=== PATIENT | female | born 1970 | race Caucasian/White ===

== ENCOUNTER 2020-11-06 10:56 | Outpatient (CLI) | payer OTHER, SELFPAY | END 2020-11-06 10:57 | disposition home or self-care (01) | LOC: ANHAUDIO 10:59 | PROVIDERS: PCP Internal Medicine | DX: H90.6 Mixed conductive and sensorineural hearing loss, bilateral (principal) | CPT/HCPCS: 92557; 92567 ==

== ENCOUNTER 2021-04-29 10:37 | Outpatient (CLI) | payer OTHER, SELFPAY ==
[2021-04-29 10:57] LABS: Basophils Absolute Auto 0.1 K/mm3 (0.0-0.1); Basophils Percent Auto 1.2 % (0.2-1.2); Eosinophils Absolute Auto 0.4 K/mm3 (0-0.3); Eosinophils Percent Auto 4.1 % (0-4.4); Hematocrit 41.1 % (37.0-47.0); Hemoglobin 12.8 g/dL (12.0-15.0); Immature Granulocyte Absolute 0.03 K/mm3 (0.00-0.031); Immature Granulocyte Percent A 0.3 % (0-0.5); Lymphocytes Absolute Auto 2.45 K/mm3 (0.9-3.2); Lymphocytes Percent Auto 24.2 % (18.3-44.2); Mean Corpuscular HGB Conc 31.1 g/dl (32-36); Mean Corpuscular Hemoglobin 28.5 pg (26-34); Mean Corpuscular Volume 91.5 fl (80-100); Mean Platelet Volume 9.1 fl (7.4-10.4); Monocytes Percent Auto 10.3 % (2.6-8.5); Neutrophils Absolute Auto 6.1 K/mm3 (1.3-6.7); Neutrophils Percent Auto 59.9 % (45.5-73.1); Platelet Count Result 400 k/mm3 (150-375); Red Blood Count 4.49 M/mm3 (4.2-5.4); Red Cell Distribution Width 14.1 % (11.5-14.5); White Blood Count 10.1 K/mm3 (4.5-10.0)
== END 2021-04-29 10:38 | disposition home or self-care (01) ==
LOC: ANHSURGERY 10:42
PROVIDERS: PCP Internal Medicine; Visit Provider Obstetrics & Gynecology
DX: Z01.818 Encounter for other preprocedural examination (principal); N85.2 Hypertrophy of uterus
CPT/HCPCS: 36415; 85025; 86850; 86900; 86901

== ENCOUNTER 2021-05-01 00:34 | Day surgery (SDC) | payer OTHER, SELFPAY ==
[2021-04-28 12:10] VITALS: BMI 26.6
--- NOTE | 2021-04-28 12:31 | PC.NURSE ---
Report to the Outpatient Waiting Room, entrance under the green pavilion located off [facility], at time 6:00 on date 05/01/21. OR Time: 7:30. - You will be asked a series of questions to screen for COVID 19 for your protection. - A mask is required within the hospital. - No visitors are allowed at this time. Preoperative COVID Testing Requirements: No COVID Test needed if: (proof is required; if not received patient will have Rapid Test prior to entry) - Patient has received COVID Vaccine at least 14 days prior to procedure date or - Patient has positive COVID test result within last 90 days of surgery date. COVID Test needed if above criteria is not met Patients may have clear liquids (water, carbonated beverages, clear teas, apple juice) until 3 hours prior to surgery (4:30) with a maximum of 20 ounces. - No food from midnight until time of surgery Take the following medications with a SIP of water the morning of surgery: NONE Medications to discontinue per physician: VITAMINS/SUPPLEMENTS Date to take last dose: 04/28/21 Please no make-up, nail vietnamese, hairspray, perfume, deodorant, or body powder the day of surgery. No jewelry (including any body piercings) or valuables the day of surgery, leave them at home. Please take a shower or bath the night before, or the morning of, surgery with an antibacterial soap. Wear comfortable, loose fitting clothing. - Jewelry must be removed prior to entering the operating room. Rings and piercings that are not removed may be cut off. - The hospital will not accept responsibility for valuables. - Please leave all valuables, including medications, at home the day of surgery. If you are going home after surgery, a licensed hearse driver must drive you home. - NO public transportation without another adult. - We recommend that an adult stay with you for 24 hours following discharge. - We also recommend that you do not drive, make important decision, drink alcoholic beverages, or take any drugs that were not prescribed by your health care provider for at least 24 hours after your discharge time. Follow any additional instructions given to you from your surgeon. Telephone instructions given to ORLY OCONNOR and asked if any additional questions and then verbalized understanding. Patient advised to call surgeon office or pre surgery nurse liaison [phone] if any additional questions.
--- NOTE | 2021-04-29 07:48 | PM.IMHP ---
H&P: HPI History of Present Illness Date/Time: 04/29/21 07:48 50-year-old female admitted for robotic total vaginal hysterectomy and bilateral salpingectomies. She has an enlarged uterus with uterine fibroids on imaging. She also has irregular bleeding pelvic pain. Risks and benefits of this procedure reviewed including not exclusive of , aspiration pneumonia, bleeding, transfusion, perforation injury to bowel, bladder, ureters, or other internal organs with need for open laparotomy. She received the ACOG handout entitled hysterectomy as well as de Ed handout. She had all questions answered and asked to proceed Chief Complaint: Enlarged uterus and pelvic pain Review of Systems Review of Systems: All systems reviewed & are unremarkable except as noted in HPI and below [facility] Social History Social History Smoking status: Never smoker Alcohol intake: never Substance use: never Substance use type: does not use Spiritual care concerns: No Meds Home Medications and Allergies Home Medications Medication Instructions Recorded Confirmed Type mirabegron [Myrbetriq] 25 mg PO DAILY 04/28/21 04/28/21 History multivitamin 1 tablet PO DAILY 04/28/21 04/28/21 History omeprazole 20 mg PO HS 04/28/21 04/28/21 History Allergies Allergy/AdvReac Type Severity Reaction Status Date / Time No Known Allergies Allergy Unknown Unverified 04/28/21 12:05 Exam Const: General: no acute distress Eyes: General: appearance normal, both eyes and all related structures Neck: Neck: supple and no JVD Thyroid: thyroid normal Resp: Effort & Inspection: normal respiratory effort Auscultation: clear to auscultation bilaterally Cardio: Rate: regular rate Rhythm: regular rhythm GI: Inspection: non-distended GI Palp: Yes Soft to palpation, No Tenderness to palpation present (GI) and No Guarding due to palpation present (GI) Auscultation: normal bowel sounds : External Female Exam: normal external appearance Speculum Exam - Vagina: normal appearance of the vagina Speculum Exam - Cervix: normal appearance of the cervix Bimanual exam- vagina & uterus: enlarged and Uterine tenderness Bimanual Exam- Adnexa, other: normal adnexae Skin: General skin exam: no rashes or lesions noted Extrem: General: normal to inspection and no edema Psych: Mental Status: mental status grossly normal Affect: normal affect Assessment and Plan Additional Plan Impression: Enlarged uterus and pelvic pain Plan: Robotic total vaginal hysterectomy with bilateral salpingectomy
[2021-05-01] VITALS (10 sets, daily range): BP systolic 96–136; BP diastolic 52–82; PULSE 47–93; RESP 11–18; TEMP 36.3–36.8; O2SAT 97–100; BMI 27.8
[2021-05-01] MEDS: ACETAMINOPHEN 500 MG TABLET 1000 MG PO (06:39)
[2021-05-01] MEDS: KETOROLAC 15 MG/ML VIAL (*BKC) IV PUSH (06:45)
--- NOTE | 2021-05-01 07:11 | WPDHPUPDATE1 ---
History and Physical Update Update Date/Time: 05/01/21 07:11 History and Physical has been reviewed, including an updated exam of the patient. There are NO changes in the patient's condition. Risks, benefits, and alternatives have been discussed and questions answered. Patient agrees to proceed with procedure.
--- NOTE | 2021-05-01 07:17 | SUR.PREOP ---
0614 UPON ARRIVAL TO PRE-OP PT STATED THAT SHE WOKE UP WITH A LT EAR ACH
[2021-05-01] MEDS: LACTATED RINGERS 1,000 ML 30 ML IV CONT (07:25)
--- NOTE | 2021-05-01 07:25 | P.PNAN_ITS ---
Anes - Initial Pre Proc Eval Procedure: Operation Date: 05/01/21 07:30 Proposed Procedures p Robotic Assisted Total Vaginal Hysterectomy with Bilateral Salpingectomy - Deric Ojeda MD Date/Time: 05/01/21 07:25 Surgeon: Deric Ojeda MD Pre Op Diagnosis: enlarged uterus, fibroids, irre bleeding, pain Patient Data Age: 50 Gender: F Height: 1.7 m Weight: 80.8 kg Last Vital Signs Temp 36.8 C 05/01/21 06:56 Pulse 82 05/01/21 06:56 Resp 18 05/01/21 06:56 BP 136/82 05/01/21 06:56 Pulse Ox 100 05/01/21 06:56 Allergies Allergy/AdvReac Type Severity Reaction Status Date / Time No Known Allergies Allergy Unknown Unverified 05/01/21 06:26 Home Medications Medication Instructions Recorded Confirmed Type mirabegron [Myrbetriq] 25 mg PO DAILY 04/28/21 05/01/21 History multivitamin 1 tablet PO DAILY 04/28/21 05/01/21 History omeprazole 20 mg PO HS 04/28/21 05/01/21 History hydrocodone-acetaminophen 1 tablet PO Q4H PRN #30 tablet 05/01/21 Rx Patient hx anesthesia problems: none Family hx anesthesia problems: none Results Review: All pre-operative results and documents have been reviewed as part of the pre-operative evaluation. [facility] Past Medical History Medical History GERD (gastroesophageal reflux disease) Social History Social History Smoking status: Never smoker Alcohol intake: never Substance use: never Substance use type: does not use Living arrangements: with family Spiritual care concerns: No Anes - Eval Final PreProcedure Day of Procedure 05/01/21 07:25 Patient weight: overweight Heart: regular rate and rhythm Lungs: clear to auscultation Airway: Mallampati scale class II Neurological: alert and oriented Last oral intake: >/= 8 hours ASA classification: II Emergent: no Anesthetic plan: proceed Anesthesia type and monitoring: general ETT and standard monitoring Results Review: All pre-operative results and documents have been reviewed as part of the pre-operative evaluation. Informed Consent: The patient's anesthetic plan and its attendant risks and benefits were discussed with the patient/family/POA. Questions were solicited and answers provided to the satisfaction of the patient/family/POA.
--- NOTE | 2021-05-01 07:27 | SUR.PREOP ---
0768 DR. RODRIGUEZ INFORM OF PT C/O LT EAR ACH - OK TO PROCEED WITH SURGERY PLANNED.
[2021-05-01] MEDS: ceFAZolin 2 GM/D5W 50 ML 2 GM/50 ML BAG IVPB (07:28)
--- NOTE | 2021-05-01 07:36 | SUR.PREOP ---
NEG PREG TEST
--- NOTE | 2021-05-01 08:48 | W.PM.PROC2 ---
Procedure Note - Detailed Date of Procedure 05/01/21 Pre-op Diagnosis enlarged uterus, fibroids, irre bleeding, pain Post-op Diagnosis same Procedure Performed Robotic total vaginal hysterectomy and bilateral salpingectomies Surgeon Deric Ojeda MD Anesthesia general Indications This is a 50-year-old female with an enlarged fibroid uterus and suspected adenomyosis with pelvic pain and discomfort. Findings Markedly enlarged uterus. Tubes status post tubal ligation. Normal-appearing ovaries Description of Procedure The patient was prepped draped in the normal sterile fashion placed in the dorsal lithotomy position. Under excellent general trach anesthesia weighted speculum placed in posterior fornix vagina. Anterior lip of the cervix grasped with a single-tooth tenaculum and the uterus sounded to 10cm. Serial dilatation with fragmented dilators performed followed by passes the 8. DELVIN and the 3. Cold cup. Next the 16 Persian catheter was placed in the bladder to drain the bladder of clear urine. The weighted speculum was removed. The gloves were changed A supraumbilical incision made in the Veress needle passed in the abdomen. Abdomen filled with CO2 gas [id number]. These were using a 12 trocar a 0 Vicryl was placed at each edge of the fascia to close the fascial later. The 12 was placed through the abdomen the downside visualized no injury seen gas reattached and patient placed in Trendelenburg. Left and right lateral quadrant incisions made the 8mm trocars advanced under direct visualization right upper quadrant incision made in the right upper quadrant incision past with a 8. Port. Care was taken to avoid abdominal injury. The robot was docked. Attention was turned to the console. The left round ligament was grasped, burned, cut. Anteriorly the bladder was markedly adherent anteriorly from the previous section scar. This was taken down layer by layer and pushed caudally to the opposite round ligament was clamped, burned, cut. The tubes were status post tubal ligation in the left portion of distal portion of fallopian tube was removed and passed off and this was repeated on the contralateral side removing the distal portion of the right fallopian tube. The left utero-ovarian ligament was then skeletonized clamped burned and cut and brought to level of previously cut round ligament. In like fashion conserving the right ovary the the utero-ovarian ligaments clamped, burned, cut and brought to the level of previously cut round ligament. The cardinal broad ligaments on the left were then serially skeletonized these were clamped, burned, cut and brought down the lateral edge of the uterus until the large uterine tortuous vessels could be seen. These were individually clamped, burned, cut. In like fashion the cardinal broad ligaments on the right were serially skeletonized hugging the cervix and uterus clamped, burned, cut and brought down to the level of the uterine vessels. These were also large and tortuous and were individually clamped, burned, cut. Excellent blanching of the uterus was seen. A colpotomy incision was made cervix uterus and portion the tubes were removed through the vagina. Blood loss was estimated 25cc. The vagina was then closed with continuous running 0V lock from lateral edge to lateral edge. The raw surface area was then sprinkled with Stigler term. Excellent hemostasis was noted the robot was undocked. The gas removed from the abdomen the supraumbilical incision was closed at that without 0 Vicryl and all the incisions closed with 4 O Monocryl and glue. Blood loss was estimated 25cc for the entire procedure. All sponge, needle, instrument counts were correct. There were no immediate complications noted Estimated Blood Loss 25 Drains No Packing No Pathology yes Complications No immediate complications Condition stable Disposition PACU
[2021-05-01] MEDS: fentaNYL CITRATE INJ (*CRX) 100 MCG/2 ML VIAL 25 MCG IV PUSH ×5 (09:09→10:25)
--- NOTE | 2021-05-01 10:42 | PC.NURSE ---
This patient, Verito Covington, was received from PACU on 05/01/21 at 1042. Patient/family oriented to unit policies and routines
[2021-05-01] MEDS: DEXTROSE 5%/LACTATED RINGERS 1,000 ML 125 ML IV CONT (11:15)
[2021-05-01] MEDS: KETOROLAC 30 MG/ML VIAL (*BKC) IV PUSH (11:15)
[2021-05-01] MEDS: HYDROcodone/acetaminophen (*CRX) 5-325 MG TABLET 1 TAB PO (16:09)
[2021-05-01] MEDS: DOCUSATE SODIUM 100 MG CAPSULE PO (16:10)
[2021-05-01] MEDS: HYDROcodone/acetaminophen (*CRX) 10-325 MG TABLET 1 TAB PO (21:25)
[2021-05-01] MEDS: IBUPROFEN 600 MG TABLET PO (21:25)
[2021-05-02 00:15] VITALS: BP 122/75; PULSE 72; RESP 18; TEMP 37.3; O2SAT 100
[2021-05-02] MEDS: HYDROcodone/acetaminophen (*CRX) 10-325 MG TABLET 1 TAB PO (02:21)
[2021-05-02 04:36] VITALS: BP 102/41; PULSE 88; RESP 18; TEMP 36.8; O2SAT 96
[2021-05-02 05:50] LABS: Basophils Absolute Auto 0.1 K/mm3 (0.0-0.1); Basophils Percent Auto 0.4 % (0.2-1.2); Eosinophils Absolute Auto 0.1 K/mm3 (0-0.3); Eosinophils Percent Auto 0.8 % (0-4.4); Hematocrit 33.1 % (37.0-47.0); Hemoglobin 10.6 g/dL (12.0-15.0); Immature Granulocyte Absolute 0.08 K/mm3 (0.00-0.031); Immature Granulocyte Percent A 0.5 % (0-0.5); Lymphocytes Absolute Auto 2.51 K/mm3 (0.9-3.2); Lymphocytes Percent Auto 16.2 % (18.3-44.2); Mean Corpuscular Hemoglobin 28.3 pg (26-34); Mean Corpuscular Volume 88.5 fl (80-100); Mean Platelet Volume 9.8 fl (7.4-10.4); Monocytes Absolute Auto 1.4 K/mm3 (0.1-0.6); Monocytes Percent Auto 9.2 % (2.6-8.5); Neutrophils Absolute Auto 11.3 K/mm3 (1.3-6.7); Neutrophils Percent Auto 72.9 % (45.5-73.1); Platelet Count Result 380 k/mm3 (150-375); Red Blood Count 3.74 M/mm3 (4.2-5.4); Red Cell Distribution Width 13.9 % (11.5-14.5); White Blood Count 15.5 K/mm3 (4.5-10.0)
--- NOTE | 2021-05-02 08:29 | P.DS_ITS ---
DS: Admitting Diagnosis Discharge Date 05/02/21 Admitting Diagnosis Enlarged uterus, pelvic pain, uterine fibroids, bleeding refractory to medical therapy DS: Summary Hospital Course Hospital Course: Patient was admitted for robotic total vaginal hysterectomy and bilateral salpingectomy. The procedure was performed on 05/01/2021 and was unremarkable. Please see the operative report for full details. Her hospital course was unremarkable. She remained afebrile. She was up, walking, ambulating, voiding without difficulty, eating and generally without complaints. Time Spent with Patient Time attestation: Total time spent providing and/or coordinating discharge services: Exam Const: General: no acute distress Eyes: General: appearance normal, both eyes and all related structures Neck: Neck: supple and no JVD Thyroid: thyroid normal Resp: Effort & Inspection: normal respiratory effort Auscultation: clear to auscultation bilaterally Cardio: Rate: regular rate Rhythm: regular rhythm GI: Inspection: non-distended GI Palp: Yes Soft to palpation, No Tenderness to palpation present (GI) and No Guarding due to palpation present (GI) Auscu ltation: normal bowel sounds : General: Yes bladder normal to palpation External Female Exam: normal external appearance Speculum Exam - Vagina: normal vaginal discharge and No vaginal bleeding Speculum Exam - Cervix: nontender Bimanual exam- vagina & uterus: bladder normal to palpation and No Cervical tenderness present OB/external & speculum: No vaginal bleeding Skin: General skin exam: no rashes or lesions noted Extrem: General: normal to inspection and no edema Psych: Mental Status: mental status grossly normal Affect: normal affect DS: Data Data Completed and Pending Pending studies at discharge: Pending at discharge 05/01/21 08:31 Surgical [PTH] Routine Labs on day of discharge: Labs from last 24 hours 05/02/21 04:15 WBC 15.5 H RBC 3.74 L Hgb 10.6 L Hct 33.1 L MCV 88.5 MCH 28.3 MCHC 32.0 RDW 13.9 Plt Count 380 H MPV 9.8 Immature Gran % (Auto) 0.5 Neut % (Auto) 72.9 Lymph % (Auto) 16.2 L [place] % (Auto) 9.2 H Eos % (Auto) 0.8 Baso % (Auto) 0.4 Lymph # (Auto) 2.51 [place] # (Auto) 1.4 H Eos # (Auto) 0.1 Baso # (Auto) 0.1 Abs Immat Gran (auto) 0.08 H Absolute Neuts (auto) 11.3 H Absolute Nucleated RBC 0.0 Nucleated RBC % 0.0 Discharge Plan Discharge Patient Disposition: Home, Self-Care Patient Instructions: Laparoscopic Hysterectomy (DC), Pain Management After Surgery (DC) Stand Alone Forms: General Discharge Instructions Follow-up/Referrals: Deric Ojeda MD [Physician] - Discharge Medications: New hydrocodone-acetaminophen 5-325 mg tablet 1 tablet PO Q4H PRN (Reason: pain) Qty: 30 RF: 0 No Action multivitamin Tablet 1 tablet PO DAILY RF: 0 omeprazole 20 mg Tablet,Delayed Release (Dr/Ec) 20 mg PO HS RF: 0 Myrbetriq 25 mg tablet extended release 24 hr 25 mg PO DAILY RF: 0
--- NOTE | 2021-05-02 08:30 | PC.NURSE ---
PT introductions made and plan of care discussed per post op administrative job titles surgery, pain management, daily care activities and pending discharge to home. PT received such instructions per one to one discussion and demonstrations this shift. PT sole recipient of such instructions and no barriers to learning identified at this time. PT verbalized understanding of such care.
--- NOTE | 2021-05-02 08:31 | PM.GYNPNOP ---
JACQUARD [employer]ED[employer] TIER - A/P Postoperative Procedures: Procedures Operation Date: 05/01/21 07:30 Actual Procedure Side Surgeon p Robotic Assisted Total Vaginal Hysterectomy with Bilateral Salpingectomy Bilateral Deric Ojeda MD Postoperative day: 1 Postoperative status: doing well Postoperative plan: routine post-op care, see orders, advance diet and discharge Time Spent With Patient Time: Total time spent is greater than 50% in coordination of care (as documented) at patient's floor/unit and/or counseling patient: Time with patient: less than 15 minutes [employer]- PN:Subj Post-Op Subjective Date/time seen: 05/02/21 08:31 Subjective: patient has no complaints and patient desires discharge Review of Systems Review of Systems: All systems reviewed & are unremarkable except as noted in HPI and below Exam Const: General: no acute distress Eyes: General: appearance normal, both eyes and all related structures Neck: Neck: supple and no JVD Thyroid: thyroid normal Resp: Effort & Inspection: normal respiratory effort Auscultation: clear to auscultation bilaterally Cardio: Rate: regular rate Rhythm: regular rhythm GI: Inspection: normal to inspection Percussion: Yes normal to percussion Auscultation: normal bowel sounds and other (Clean dry andintact) : External Female Exam: normal external appearance and other (No vaginal bleeding) Speculum Exam - Vagina: normal appearance of the vagina Skin: General skin exam: no rashes or lesions noted Extrem: General: normal to inspection and no edema Psych: Mental Status: mental status grossly normal Affect: normal affect [employer] TIER - PN: Obj Data Vital Signs Vital Signs: Vital Signs - 24 hr 05/01/21 09:05 05/01/21 09:20 05/01/21 09:34 Temperature 97.4 F L Pulse Rate 58 L 48 L 48 L Respiratory Rate 12 18 13 Blood Pressure 126/69 107/64 106/63 Pulse Oximetry 100 97 100 05/01/21 09:50 05/01/21 10:06 05/01/21 10:20 Temperature Pulse Rate 47 L 47 L 51 L Respiratory Rate 11 L 11 L 11 L Blood Pressure 96/66 L 108/63 105/67 Pulse Oximetry 100 99 99 05/01/21 11:43 05/01/21 15:45 05/01/21 19:45 Temperature 98.1 F 98.2 F 98.3 F Pulse Rate 59 L 93 65 Respiratory Rate 16 18 18 Blood Pressure 104/52 L 128/68 127/80 Pulse Oximetry 100 98 100 05/02/21 00:15 05/02/21 04:36 Temperature 99.1 F 98.2 F Pulse Rate 72 88 Respiratory Rate 18 18 Blood Pressure 122/75 102/41 L Pulse Oximetry 100 96 Intake/Output Intake/Output: Intake & Output 04/29/21 04/30/21 05/01/21 05/02/21 23:59 23:59 23:59 23:59 Intake Total 4220 400 Output Total 2550 400 Balance 1670 0 Meds/Results Medications: Active Medications Generic Name Dose Route Start Last Admin Trade Name Freq PRN Reason Stop Dose Admin Hydrocodone Bitart/Acetaminophen 1 tab 05/01/21 10:38 05/01/21 16:09 Hydrocodone/Acetaminophen (*Crx) 5-325 Mg Tablet PO 1 tab Q3H PRN Administration Pain Rated 5 or Less Hydrocodone Bitart/Acetaminophen 1 tab 05/01/21 10:38 05/02/21 02:21 Hydrocodone/Acetaminophen (*Crx) 10-325 Mg Tablet PO 1 tab Q3H PRN Administration Pain Rated 6 or Greater Docusate Sodium 100 mg 05/01/21 10:38 05/01/21 17:58 Docusate Sodium 100 Mg Capsule PO Not Given BID [facility] Enoxaparin Sodium 40 mg 05/01/21 10:38 05/01/21 17:58 Enoxaparin 40 Mg/0.4 Ml Syringe SUB-Q Not Given DAILY [facility] Ibuprofen 600 mg 05/01/21 10:38 05/01/21 21:25 Ibuprofen 600 Mg Tablet PO 600 mg Q6H PRN Administration Cramping Ketorolac Tromethamine 30 mg 05/01/21 10:38 05/01/21 11:15 Ketorolac 30 Mg/Ml Vial (*Bkc) IV PUSH 05/06/21 10:37 30 mg Q6H PRN Administration Pain Rated 4-6 Naloxone HCl 0.1 mg 05/01/21 10:38 Naloxone Hcl 0.4 Mg/Ml Vial IV PUSH Q2M PRN Respiratory rate less than 10 Ondansetron HCl 4 mg 05/01/21 10:38 Ondansetron Inj 4 Mg/2 Ml Vial IV PUSH Q6H PRN Nausea And Vomiting Simethicone 80 mg
[2021-05-02] MEDS: ENOXAPARIN 40 MG/0.4 ML SYRINGE SUB-Q (08:46)
[2021-05-02] MEDS: DOCUSATE SODIUM 100 MG CAPSULE PO (08:47)
[2021-05-02] MEDS: SIMETHICONE 80 MG TAB.CHEW PO (08:47)
[2021-05-02] MEDS: HYDROcodone/acetaminophen (*CRX) 5-325 MG TABLET 1 TAB PO (08:47)
[2021-05-02] MEDS: IBUPROFEN 600 MG TABLET PO (08:48)
[2021-05-02 09:05] VITALS: BP 126/67; PULSE 61; RESP 16; TEMP 36.2; O2SAT 100
--- NOTE | 2021-05-02 10:00 | PC.NURSE ---
PT received discharge instructions and verbalized understanding of such care.
--- NOTE | 2021-05-02 10:28 | PC.NURSE ---
PT discharged to home ambulatory accompanied by spouse and taken to waiting car. Follow up appts confirmed
--- NOTE | 2021-05-02 10:29 | WPDANESPN ---
Anes - Prog Note Post-Op Date/Time: 05/02/21 10:29 Cardiovascular status: normal Respiratory status: normal Airway patency: baseline Post-Op hydration status: normal Vital Signs: Last Vital Signs Temp 36.2 C L 05/02/21 09:05 Pulse 61 05/02/21 09:05 Resp 16 05/02/21 09:05 BP 126/67 05/02/21 09:05 Pulse Ox 100 05/02/21 09:05 Pain Score (VAS): 04/27 I/O: Intake & Output 05/01/21 05/02/21 05/02/21 23:59 07:59 15:59 Intake Total 1100 400 Output Total 1050 400 Balance 50 0 Laboratory Tests 05/02/21 04:15 05/02/21 04:15 WBC 15.5 H RBC 3.74 L Hgb 10.6 L Hct 33.1 L MCV 88.5 MCH 28.3 MCHC 32.0 RDW 13.9 Plt Count 380 H MPV 9.8 Immature Gran % (Auto) 0.5 Neut % (Auto) 72.9 Lymph % (Auto) 16.2 L [place] % (Auto) 9.2 H Eos % (Auto) 0.8 Baso % (Auto) 0.4 Lymph # (Auto) 2.51 [place] # (Auto) 1.4 H Eos # (Auto) 0.1 Baso # (Auto) 0.1 Abs Immat Gran (auto) 0.08 H Absolute Neuts (auto) 11.3 H Absolute Nucleated RBC 0.0 Nucleated RBC % 0.0 Post-procedural complaints: none Patient Feedback: Patient satisfied with anesthetic care.
== END 2021-05-02 10:28 | disposition home or self-care (01) ==
LOC: ANHSURGERY 07:12 → ANHOB2 10:39
PROVIDERS: PCP Internal Medicine; Visit Provider Obstetrics & Gynecology
PROC: (CPT 58552; principal; 2021-05-01 07:30)
DX: D25.1 Intramural leiomyoma of uterus (principal); D25.2 Subserosal leiomyoma of uterus; N93.9 Abnormal uterine and vaginal bleeding, unspecified; N80.0 Endometriosis of uterus; N80.2 Endometriosis of fallopian tube; N73.6 Female pelvic peritoneal adhesions (postinfective); K21.9 Gastro-esophageal reflux disease without esophagitis; R10.2 Pelvic and perineal pain
CPT/HCPCS: 58552; S2900; 36415; 85025; 86850; 86900; 86901; 88307; 99199; A9270; J0690; J1100; J1650; J1885; J2250; J2270; J2405; J2704; J2710; J2765; J3010; J7030; J7120; J7121

== ENCOUNTER 2022-02-24 01:26 | Day surgery (SDC) | payer OTHER, SELFPAY ==
[2022-02-16 12:55] VITALS: BMI 30.7
--- NOTE | 2022-02-23 15:08 | PM.HPGS ---
History of Present Illness History of Present Illness Consent: Risks, benefits, and alternatives have been discussed and questions answered. Patient agrees to proceed with procedure. Chief complaint: dysphagia, neoplasm screening Narrative: Verito Covington is a 51 year old female who is referred because of dysphagia and also for colon cancer screening. She was found to have eosinophilic esophagitis about 5 years ago. A follow-up EGD several months later showed a very low eosinophil count showing that she had responded. Her therapy at that time was only omeprazole. She continues to take omeprazole, 20 mg daily. She is however having more dysphagia now. 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 EGD a year later showed only scarce eosinophils. Review of Systems Review of Systems: All systems reviewed & are unremarkable except as noted in HPI and below PMFSH Past Medical History Medical History Dysphagia Eosinophilic esophagitis GERD (gastroesophageal reflux disease) GERD (gastroesophageal reflux disease) Liver hemangioma Obesity (BMI 30.0-34.9) Patella-femoral syndrome Pulmonary nodule Pulmonary nodules Screening for colon cancer Surgical History Surgical History History of partial hysterectomy Family History Family History Mother Depression Anxiety Father Parkinsons Social History Social History Smoking status: Never smoker Alcohol intake: never Substance use: never Substance use type: does not use Living arrangements: with family Gender identity (if verbalized by the patient): Female Sexual Orientation (if Verbalized by the Patient): Straight or Heterosexual Spiritual care concerns: No Meds Home Medications and Allergies Home Medications Medication Instructions Recorded Confirmed Type mirabegron 25 mg tablet,extended 25 mg PO DAILY 04/28/21 02/16/22 History release 24 hr (Myrbetriq) multivitamin 1 tablet PO DAILY 04/28/21 02/16/22 History fluticasone propionate 50 2 spray intranasal DAILY 01/07/22 02/16/22 History mcg/actuation nasal spray,suspension omeprazole 40 mg capsule,delayed 40 mg PO DAILY #30 caps 02/09/22 02/16/22 Rx release Allergies Allergy/AdvReac Type Severity Reaction Status Date / Time No Known Allergies Allergy Unknown Verified 02/24/22 08:14 Exam Const: General: alert Orientation/consciousness: patient oriented x3 Resp: Auscultation: clear to auscultation bilaterally Cardio: Rhythm: regular rhythm GI: GI Palp: Yes Soft to palpation and No Tenderness to palpation present (GI) Neuro: General: patient oriented x3 Assessment and Plan Assessment and plan (1) Dysphagia: Code(s): R13.10 - Dysphagia, unspecified Status: Acute Assessment and Plan: EGD with possible biopsy or dilatation or cautery. (2) Screening for colon cancer: Code(s): Z12.11 - Encounter for screening for malignant neoplasm of colon Status: Acute Assessment and Plan: Colonoscopy with possible biopsy or polypectomy or cautery or injection of substances.
[2022-02-24 08:15] VITALS: BP 126/83; PULSE 84; RESP 18; TEMP 36.2; O2SAT 98
[2022-02-24] MEDS: LACTATED RINGERS 1,000 ML 150 ML IV CONT (08:25)
--- NOTE | 2022-02-24 09:02 | WPDANESEPPF ---
Anes - Initial Pre Proc Eval Procedure: Operation Date: 02/24/22 09:30 Proposed Procedures p Esophagogastroduodenoscopy & Screening Colonoscopy - Niles Clay MD Date/Time: 02/24/22 09:02 Surgeon: Niles Clay MD Pre Op Diagnosis: dysphagia, neoplasm screening Patient Data Age: 51 Gender: F Height: 1.7 m Weight: 87.4 kg Last Vital Signs Temp 97.2 F L 02/24/22 08:15 Pulse 84 02/24/22 08:15 Resp 18 02/24/22 08:15 BP 126/83 02/24/22 08:15 Pulse Ox 98 02/24/22 08:15 O2 Del Method Room Air 02/24/22 08:15 Allergies Allergy/AdvReac Type Severity Reaction Status Date / Time No Known Allergies Allergy Unknown Verified 02/24/22 08:14 Home Medications Medication Instructions Recorded Confirmed Type mirabegron 25 mg tablet,extended 25 mg PO DAILY 04/28/21 02/16/22 History release 24 hr (Myrbetriq) multivitamin 1 tablet PO DAILY 04/28/21 02/16/22 History fluticasone propionate 50 2 spray intranasal DAILY 01/07/22 02/16/22 History mcg/actuation nasal spray,suspension omeprazole 40 mg capsule,delayed 40 mg PO DAILY #30 caps 02/09/22 02/16/22 Rx release Patient hx anesthesia problems: none Family hx anesthesia problems: none Results Review: All pre-operative results and documents have been reviewed as part of the pre-operative evaluation. [facility] Past Medical History Medical History (Updated 02/09/22 @ 14:42 by Peggy Parikh APRN) Dysphagia Eosinophilic esophagitis GERD (gastroesophageal reflux disease) GERD (gastroesophageal reflux disease) Liver hemangioma Obesity (BMI 30.0-34.9) Patella-femoral syndrome Pulmonary nodule Pulmonary nodules Screening for colon cancer Surgical History Surgical History History of partial hysterectomy Family History Family History Mother Depression Anxiety Father Parkinsons Social History Social History Smoking status: Never smoker Alcohol intake: never Substance use: never Substance use type: does not use Living arrangements: with family Gender identity (if verbalized by the patient): Female Sexual Orientation (if Verbalized by the Patient): Straight or Heterosexual Spiritual care concerns: No Anes - Eval Final PreProcedure Day of Procedure 02/24/22 09:02 Patient weight: normal Heart: regular rate and rhythm Lungs: clear to auscultation Airway: Mallampati scale class II Neurological: alert and oriented Last oral intake: >/= 8 hours ASA classification: II Emergent: no Anesthetic plan: proceed Anesthesia type and monitoring: general GIVS and standard monitoring Results Review: All pre-operative results and documents have been reviewed as part of the pre-operative evaluation. Informed Consent: The patient's anesthetic plan and its attendant risks and benefits were discussed with the patient/family/POA. Questions were solicited and answers provided to the satisfaction of the patient/family/POA.
--- NOTE | 2022-02-24 09:33 | SUR.OPER ---
EGD began at . Colonoscopy began at 929.
[2022-02-24 09:47] VITALS: BP 122/70; PULSE 90; RESP 18; O2SAT 98
[2022-02-24 09:57] VITALS: BP 131/92; PULSE 82; RESP 18; O2SAT 98
[2022-02-24 10:07] VITALS: BP 136/75; PULSE 80; RESP 20; O2SAT 100
== END 2022-02-24 10:16 | disposition home or self-care (01) ==
PROVIDERS: PCP Family Medicine; Visit Provider Internal Medicine Gastroenterology
PROC: 0DJ08ZZ Inspection of Upper Intestinal Tract, Via Natural or Artificial Opening Endoscopic (ICD-10-PCS; CPT 43235; principal; 2022-02-24 09:30)
DX: Z12.11 Encounter for screening for malignant neoplasm of colon (principal); K57.30 Diverticulosis of large intestine without perforation or abscess without bleeding; K20.0 Eosinophilic esophagitis; R13.10 Dysphagia, unspecified
CPT/HCPCS: 45378; 43249; 88305; C1726; J2001; J2704; J7120

== ENCOUNTER 2022-03-03 09:34 | Outpatient (CLI) | payer OTHER, SELFPAY ==
--- NOTE | ~2022-03-03 | CT_ITS ---
EXAMINATION: CT chest abdomen w con DATE: 03/03/2022 10:23 INDICATION: Lung nodules and liver hemangiomas TECHNIQUE: Computed tomography (CT) of the chest and abdomen was performed with 100 mL Omnipaque-350 intravenous contrast. Automated exposure control and iterative reconstruction technique were employed . The dose-length product was 572.84 mGy-cm. COMPARISON: 05/10/2019 and 05/02/2019 FINDINGS: CHEST CT: Minimal discoid atelectasis at the lingula. Unchanged 1.3 cm centrally calcified granuloma in the lef t lower lobe. Also unchanged are noncalcified 2 mm and 4 mm right upper lobe nodules on series 4, naresh ges 23 and 44 respectively. The previously seen nodular groundglass opacities in the left lower lobe have resolved and were likely infectious/inflammatory in etiology. No other suspicious pulmonary nodu les, pulmonary edema, pneumonia or pleural effusion. Heart size is normal. No pericardial effusion. E ctatic ascending thoracic aorta measuring up to 4.0 cm. Normal caliber aortic arch and descending tho racic aorta. No dissection. No pathologically enlarged thoracic lymphadenopathy. Small sliding-type h iatal hernia. ABDOMEN CT: Interval increase in the 2 largest of 3 cavernous hemangiomas, each with characteristic peripheral di scontiguous puddling of contrast. The largest 5.8 x 3.5 cm, currently 6.5 x 4.2 cm cavernous hemangio ma in the caudal right hepatic lobe, the next largest in segment 7 has increased from 2.0 x 1.5 cm to 4.1 x 2.8 cm. The smallest 1.5 similar hemangioma also in segment 7 remains unchanged. No new liver lesions identified. Gallbladder, pancreas, spleen, bilateral adrenal glands and kidneys are normal. S mall supraumbilical fat-containing ventral hernia with unchanged more caudal umbilical hernia mesh re pair. Visualized portions of the bowels including the appendix are normal. No pathologically enlarged abdominal lymphadenopathy. IMPRESSION: 1. No car changer 2 years in the right upper and left lower lobe nodules consistent with old granulom atous disease and requiring no further follow-up. The prior groundglass nodules in the left lower lob e have resolved and were likely infectious/inflammatory in etiology. 2. Ectatic ascending thoracic aorta measuring up to 4.0 cm. 3. 3 cavernous hemangiomas the right hepatic lobe the 2 largest which have increased in size since e prior study. 4. Very small fat-containing supraumbilical ventral hernia with more caudal umbilical hernia mesh rep air. 5. Small sliding-type hiatal hernia. Reviewed, dictated and finalized at location B. TESTER IMPRESSION: 1. No car changer 2 years in the right upper and left lower lobe nodules consis tent with old granulomatous disease and requiring no further follow-up. The danny or groundglass nodules in the left lower lobe have resolved and were likely inf ectious/inflammatory in etiology. 2. Ectatic ascending thoracic aorta measuring up to 4.0 cm. 3. 3 cavernous hemangiomas the right hepatic lobe the 2 largest which have incr eased in size since the prior study. 4. Very small fat-containing supraumbilical ventral hernia with more caudal umb ilical hernia mesh repair. 5. Small sliding-type hiatal hernia.
== END 2022-03-03 09:35 | disposition home or self-care (01) ==
PROVIDERS: PCP Family Medicine; Visit Provider Nurse Practitioner
DX: R91.1 Solitary pulmonary nodule (principal); K44.9 Diaphragmatic hernia without obstruction or gangrene; K43.9 Ventral hernia without obstruction or gangrene
CPT/HCPCS: 71260; 74160; Q9967